=== PATIENT | male | born 1985 | race Caucasian/White ===

== ENCOUNTER 2017-01-01 04:13 | Emergency (ER) | payer OTHER | END 2017-01-01 05:15 | disposition home or self-care (01) | LOC: ER 04:13 | DX: T37.0X5A Adverse effect of sulfonamides, initial encounter (principal); Z88.1 Allergy status to other antibiotic agents | CPT/HCPCS: 96372 ==

== ENCOUNTER 2017-01-01 23:14 | Emergency (ER) | payer OTHER | END 2017-01-02 02:35 | disposition home or self-care (01) | LOC: ER 23:14 | DX: T88.6XXA Anaphylactic reaction due to adverse effect of correct drug or medicament properly administered, initial encounter (principal); T37.0X5A Adverse effect of sulfonamides, initial encounter; Z88.1 Allergy status to other antibiotic agents | CPT/HCPCS: 36415; 87651; 96361; 96374; 96375; J0171; J1100; J1200 ==

== ENCOUNTER 2017-01-02 04:35 | Observation (INO) | payer OTHER ==
[2017-01-04] MEDS ORDERED: ZANTAC300 MG PO (16:03)
[2017-01-04] MEDS ORDERED: MEDROL4 M1 PO (16:04)
[2017-01-04] MEDS ORDERED: CLARITIN10 MG PO (16:04)
[2017-01-04] MEDS ORDERED: CHANTIX1 EACH PO (16:04)
== END 2017-01-04 16:20 | disposition home or self-care (01) ==
LOC: ER 04:35 → ICU 05:58 → MED 17:25
PROVIDERS: ADMIT Internal Medicine
DX: T78.3XXA Angioneurotic edema, initial encounter (principal); T37.0X5A Adverse effect of sulfonamides, initial encounter; D72.829 Elevated white blood cell count, unspecified; G43.909 Migraine, unspecified, not intractable, without status migrainosus; F17.210 Nicotine dependence, cigarettes, uncomplicated; Z88.1 Allergy status to other antibiotic agents; Z79.899 Other long term (current) drug therapy; Z90.49 Acquired absence of other specified parts of digestive tract
CPT/HCPCS: 96361; 96374; 96375; 96376; G0378; J0171; J1200